=== PATIENT | female | born 1960 | race Caucasian/White ===

== ENCOUNTER → 2018-11-05 | Outpatient (CLI) | payer BC ==
--- NOTE | 2018-11-05 15:01 | Diagnostic Imaging Report ---
Chest radiograph, 2 views Clinical indications: History of smoking, checkup Comparison: None Findings: The heart is within normal limits in size. The mediastinal and hilar contours are unremarkable. No focal consolidation, sizable pleural effusion, or pneumothorax. No acute osseous abnormalities. Impression: No radiographic evidence of acute cardiopulmonary process. Signed by: David Reyes MD on 11/05/2018 2:58 PM
--- NOTE | 2018-11-16 09:28 | Diagnostic Imaging Report ---
#[id number] - MGSCRBIL #BILATERAL FIRST EVER DIGITAL SCREENING MAMMOGRAM WITH CAD: 11/05/2018 CLINICAL: Routine screening. Baseline examination. No prior exams were available for comparison. Current study contains 4 films. There are scattered fibroglandular elements in both breasts. Current study was also evaluated with a Computer Aided Detection (CAD) system. Benign appearing calcifications are noted bilaterally. Several subcentimeter densities with obscured margin are present in the left breast inner lower quadrant anterior depth. No other significant masses, calcifications, or other findings are seen in either breast. IMPRESSION: INCOMPLETE: NEEDS ADDITIONAL IMAGING EVALUATION The densities in the left breast are indeterminate. Mediolateral and compression views as well as an ultrasound are recommended. The patient will be contacted by the Mammography Department to schedule this appointment. JOSE AIKEN M.D. ct/:11/12/2018 10:58:39 Manager International: Tamar MARTINEZ)(Sam), [facility] letter sent: Additional Imaging Needed Mammogram BI-RADS: 0 Indeterminate
== END ==
LOC: MAMMO 13:27
PROVIDERS: ATTEND Internal Medicine
DX: Z12.31 Encounter for screening mammogram for malignant neoplasm of breast (principal); Z12.2 Encounter for screening for malignant neoplasm of respiratory organs; Z87.891 Personal history of nicotine dependence
CPT/HCPCS: 71046; 77067

== ENCOUNTER → 2018-12-16 | Outpatient (CLI) | payer BC ==
--- NOTE | 2018-12-17 09:15 | Diagnostic Imaging Report ---
#[id number] - USBRELIMLT ULTRASOUND OF THE LEFT BREAST : 12/16/2018 Comparison is made to exams dated: 12/16/2018 mammogram and 11/05/2018 mammogram - [facility]. Real-time ultrasound was performed on the left breast. Scattered cysts and mildly dilated ducts are noted. IMPRESSION: BENIGN There is no sonographic evidence of malignancy. A 1 year screening mammogram is recommended. JOSE AIKEN M.D. ct/penrad:12/16/2018 13:22:01 Manager Engine: LONNY HOOK RDMS, [facility] letter sent: Normal Exam Ultrasound BI-RADS: 2 Benign
--- NOTE | 2018-12-17 09:15 | Diagnostic Imaging Report ---
#[id number] - MGDXLT #UNILATERAL LEFT DIGITAL DIAGNOSTIC MAMMOGRAM WITH SPOT COMPRESSION: 12/16/2018 Comparison is made to exam dated: 11/05/2018 mammogram - [facility]. Current study contains 3 films. There are scattered fibroglandular elements in the left breast. Benign appearing calcifications are noted in the left breast. Small nodule is confirmed as simple cyst on US. No significant masses, calcifications, or other findings are seen in the breast. IMPRESSION: BENIGN See the report for ultrasound performed the same day for additional details. There is no mammographic evidence of malignancy. A 1 year screening mammogram is recommended. The patient will be notified by letter of the results. JOSE AIKEN M.D. ct/:12/16/2018 13:21:12 Product Assurance Engineer: Tamar ESTRADA(R)(M), [facility] letter sent: Normal Exam Mammogram BI-RADS: 2 Benign
== END ==
LOC: MAMMO 09:01
PROVIDERS: ATTEND Internal Medicine
DX: R92.2 Inconclusive mammogram (principal)

== ENCOUNTER → 2020-06-25 | Outpatient (CLI) | payer BC ==
[~2020-06-25] MED LIST: GADOBENATE DIMEGLUMINE 1 ML IV ONE
[2020-06-25 13:15] LABS: BLOOD UREA NITROGEN 18 mg/dL (7-26); BUN/CREATININE RATIO 24 (6-25); CREATININE, SERUM 0.75 mg/dL (0.57-1.11); EST GLOMERULAR FILTRATION RATE > 60 ML/MIN (60-)
== END ==
LOC: MRI 12:34
PROVIDERS: ATTEND Specialist
DX: R22.42 Localized swelling, mass and lump, left lower limb (principal)
CPT/HCPCS: 36415; 82565; 84520